=== PATIENT | female | born 1975 | race Caucasian/White ===

== ENCOUNTER 2017-02-06 05:50 | Inpatient (IN) | payer OTHER ==
[2017-02-06] MEDS ORDERED: ONDANSETRON 4 MG/2 ML VIAL IVP ONE (06:00)
[2017-02-06] MEDS ORDERED: fentaNYL 100 MCG/2 ML INJ IVP ONE ×2 (06:04→06:45)
[2017-02-06] MEDS ORDERED: ONDANSETRON 4 MG/2 ML VIAL ONE (06:04)
[2017-02-06] MEDS ORDERED: NS 1,000 ML IV ONE ×2 (06:04→08:37)
--- NOTE | 2017-02-06 06:14 | EDPHY ---
H & P Stated Complaint: Nausea, abdo pain X 6 hours Time Seen by Provider: 02/06/17 05:57 HPI/ROS: Chief complaint: Abdominal pain, nausea HPI: 41-year-old female with a past medical history of irritable bowel disease and endometriosis woke at midnight this morning with severe diffuse abdominal pain. Pain is rated as a 10/10. She has had some nausea associated with this but no vomiting. Initially felt like gas pains but continued to worsen. Also felt like her prior and will bowel pain but has never been this severe. Is she did have 2 loose stools. No blood or melena. She has a history of endometriosis status post hysterectomy. Up until this morning has been in her normal state of health. No fevers or chills. No chest pain or shortness of breath. She also reports that she normally has a very low blood pressure, typically in the 80 systolic. This is a very common for her. ROS: 10 point Review of Systems is negative except as noted in the HPI. Past medical history: Irritable bowel syndrome Endometriosis Migraine headaches Past surgical history: Hysterectomy Appendectomy Laparoscopy for endometriosis Allergies: Paroxetine Physical exam: Gen: Awake, Alert, No Distress HEENT: Nose: no rhinorrhea Eyes: PERRLA, EOMI Mouth: Moist mucosa Neck: Supple, no JVD Chest: nontender, lungs clear to auscultation Heart: S1, S2 normal, no murmur Abd: Soft, diffuse abdominal tenderness to palpation, worsening left lower quadrant. Decreased bowel sounds, diffuse voluntary guarding Back: no CVA tenderness, no midline tenderness Ext: no edema, non-tender Skin: no rash Neuro: CN II-XII intact, Sensation grossly intact, Strength 5/5 in bilateral upper and lower extremities - Personal History LMP (Females 10-55): Hysterectomy Current Tetanus/Diphtheria Vaccine: Yes Current Tetanus Diphtheria and Acellular Pertussis (TDAP): Yes - Medical/Surgical History Hx Asthma: No Hx Chronic Respiratory Disease: No Hx Diabetes: No Hx Cardiac Disease: No Hx Renal Disease: No Hx Cirrhosis: No Hx Alcoholism: No Hx HIV/AIDS: No Hx Splenectomy or Spleen Trauma: No Other PMH: endometriosis, IBS, panic attacks (mostly in college years ago) - Social History Smoking Status: Never smoked Constitutional: Initial Vital Signs Heart Rate 100 02/06/17 05:53 Respiratory Rate 18 02/06/17 05:53 Blood Pressure 85/74 L 02/06/17 05:53 O2 Sat (%) 100 02/06/17 05:53 O2 Delivery Mode Room Air Allergies/Adverse Reactions: paroxetine HCl [From Paxil] Allergy (Verified 02/06/17 05:53) Rash Home Medications: Medication Instructions Recorded Fexofenadine HCl [Orly Allergy] 60 mg PO DAILY 06/25/16 Herbals/Supplements -Info Only 1 ea PO DAILY 06/26/16 Docusate Sodium [Colace 100 MG (*)] 100 mg PO BID #0 cap 07/17/16 Hydrocodone/APAP 5/325 [[place] 1 - 2 tab PO Q4 PRN #30 tab 07/17/16 5/325 (*)] Ibuprofen [Ibuprofen Ib] 4 tab PO Q6 #0 tablet 07/17/16 Simethicone [Mylicon] 80 mg PO PCHS #0 tab.chew 07/17/16 Medical Decision Making ED Course/Re-evaluation: Patient with diffuse but primary left-sided abdominal pain to a 10/10. IV is been placed. Will give fluids. Will give antiemetics and analgesics. Blood work been sent. 0637 patient states initially pain went down to an 8/10. This was after the fentanyl. Patient's testing the penis or any creep up again is probably about a 9 getting higher. Will reduce fentanyl. Still awaiting blood test results. Given the patient's pain exam will order a CT scan of her head abdomen and pelvis for further evaluation. 0700 Pt still c/o pain. dilaudid 0.5 mg IV ordered. Pt signed out to Dr Zapata pending lab results and CT abdomen. - Data Points Laboratory Results: Laboratory Results 02/06/17 06:00 02/06/17 02/06/17 06:00 06:00 WBC 11.17 10^3/uL H 10^3/uL (3.80-9.50) RBC 4.90 10^6/uL 10^6/uL (4.18-5.33) Hgb 15.3 g/dL g/dL (12.6-16.3) Hct 44.5 % % (38.0-47.0) MCV 90.8 fL fL (81.5-99.8) MCH 31.2 pg pg (27.9-34.1) MCHC 34.4 g/dL g/dL (32.4-36.7) RDW 12.6 % % (11.5-15.2) Plt Count 350 10^3/uL 10^3/uL (150-400) MPV 11.3 fL fL (8.7-11.7) Neut % (Auto) 80.0 % H % (39.3-74.2) Lymph % (Auto) 14.5 % L % (15.0-45.0) [place] % (Auto) 4.1 % L % (4.5-13.0) Eos % (Auto) 0.3 % L % (0.6-7.6) Baso % (Auto) 0.6 % % (0.3-1.7) Nucleat RBC Rel Count 0.0 % % (0.0-0.2) Absolute Neuts (auto) 8.93 10^3/uL H 10^3/uL (1.70-6.50) Absolute Lymphs (auto) 1.62 10^3/uL 10^3/uL (1.00-3.00) Absolute Monos (auto) 0.46 10^3/uL 10^3/uL (0.30-0.80) Absolute Eos (auto) 0.03 10^3/uL 10^3/uL (0.03-0.40) Absolute Basos (auto) 0.07 10^3/uL 10^3/uL (0.02-0.10) Absolute Nucleated RBC 0.00 10^3/uL 10^3/uL (0-0.01) Immature Gran % 0.5 % % (0.0-1.1) Immature Gran # 0.06 10^3/uL 10^3/uL (0.00-0.10) Sodium Pending Potassium Pending Chloride Pending Carbon Dioxide Pending Anion Gap Pending BUN Pending Creatinine Pending Estimated GFR Pending Glucose Pending Calcium Pending Total Bilirubin Pending Conjugated Bilirubin Pending Unconjugated Bilirubin Pending AST Pending ALT Pending Alkaline Phosphatase Pending Total Protein Pending Albumin Pending Lipase Pending Medications Given: Discontinued Medications Fentanyl (Sublimaze) 50 mcg IVP EDNOW ONE Stop: 02/06/17 06:05 Last Admin: 02/06/17 06:12 Dose: 50 mcg Fentanyl (Sublimaze) 50 mcg IVP EDNOW ONE Stop: 02/06/17 06:46 Last Admin: 02/06/17 06:50 Dose: 50 mcg Sodium Chloride (Ns) 1,000 mls @ 0 mls/hr IV ONCE ONE PRN Reason: Wide Open Stop: 02/06/17 06:05 Last Admin: 02/06/17 06:11 Dose: 1,000 mls Ondansetron HCl (Zofran) 4 mg IVP EDNOW ONE Stop: 02/06/17 06:01 Last Admin: 02/06/17 06:00 Dose: 4 mg Departure - Departure Referrals: Denisa Brownlee MD [Primary Care Provider] - As per Instructions
[2017-02-06 06:49] LABS: % IMMATURE GRANULYOCYTES 0.5 % (0.0-1.1); ABSOLUTE IMMATURE GRANULOCYTES 0.06 10^3/uL (0.00-0.10); ADD DIFF? NO; ADD MORPH? NO; ADD SCAN? NO; ATYPICAL LYMPHOCYTE FLAG 0 (0-99); FRAGMENT RBC FLAG 0 (0-99); HEMATOCRIT 44.5 % (38.0-47.0); HEMOGLOBIN 15.3 g/dL (12.6-16.3); LEFT SHIFT FLG 0 (0-99); LIPEMIA HEMOLYSIS FLAG 90 (0-99); MEAN CELL HEMOGLOBIN 31.2 pg (27.9-34.1); MEAN CELL HEMOGLOBIN CONCENTR. 34.4 g/dL (32.4-36.7); MEAN CELL VOLUME 90.8 fL (81.5-99.8); MEAN PLATELET VOLUME 11.3 fL (8.7-11.7); PLATELET CLUMPS FLAG 20 (0-99); PLATELET COUNT 350 10^3/uL (150-400); RED CELL DISTRIBUTION WIDTH 12.6 % (11.5-15.2)
[2017-02-06] MEDS ORDERED: IOPAMIDOL (ISOVUE-300) 100 ML BTL IV ONE (06:51)
[2017-02-06] MEDS ORDERED: HYDROmorphONE/DILAUDID 1 MG/ML SYR ONE (07:01)
[2017-02-06] MEDS ORDERED: HYDROmorphONE/DILAUDID 1 MG/ML SYR IVP ONE (07:04)
[2017-02-06 07:24] LABS: ALANINE AMINOTRANSFERASE 36 IU/L (9-52); ALBUMIN 5.3 g/dL (3.5-5.0); ALKALINE PHOSPHATASE 81 IU/L (38-126); ANION GAP 15 mEq/L (8-16); ASPARTATE AMINOTRANSFERASE 37 IU/L (14-46); BILIRUBIN,TOTAL 0.7 mg/dL (0.1-1.4); BILIRUBIN-CONJUGATED 0.2 mg/dL (0.0-0.5); BILIRUBIN-UNCONJUGATED 0.5 mg/dL (0.0-1.1); CALCIUM 10.5 mg/dL (8.5-10.4); CARBON DIOXIDE 26 mEq/l (22-31); CHLORIDE 101 mEq/L (97-110); CREATININE 0.6 mg/dL (0.6-1.0); GLOMERULAR FILTRATION RATE > 60; GLUCOSE 118 mg/dL (70-100); POTASSIUM 3.6 mEq/L (3.5-5.2); SODIUM 142 mEq/L (134-144); TOTAL PROTEIN 8.7 g/dL (6.3-8.2)
[2017-02-06 07:56] LABS: COLOR AMBER; LEUKOCYTE ESTERASE,URINE NEGATIVE (NEGATIVE); NITRITE,URINE NEGATIVE (NEGATIVE)
[2017-02-06] MEDS ORDERED: ONDANSETRON 4 MG/2 ML VIAL IVP PRN (09:47)
[2017-02-06] MEDS ORDERED: METOCLOPRAMIDE 10 MG/2 ML VIAL IVP PRN (09:47)
[2017-02-06] MEDS ORDERED: CETACAINE SPRAY 20 GM TP ONE (09:54)
[2017-02-06] MEDS ORDERED: OXYMETAZOLINE 30 ML NASAL SPRAY ONE (09:55)
--- NOTE | 2017-02-06 10:21 | GHP ---
[f rep st] HISTORY AND PHYSICAL DATE OF ADMISSION: 02/06/2017 CHIEF COMPLAINT: Abdominal pain. HISTORY OF PRESENT ILLNESS: This is a 41-year-old female with a longstanding history of irritable b owel syndrome who presents to the emergency department with acute onset abdominal pain. She states that she was in her usual state of health last evening and began about midnight having fairly progre ssive excruciating abdominal pain. She stated that this was not out of the ordinary for her typical IBS type symptoms, but that the pain progressed and did not trinity with her typical treatment, inclu ding Gas-X and bowel movements. She presented to the emergency department early this morning compla ining of fairly diffuse abdominal pain with nausea, no vomiting, denying fevers and chills. On pres entation, her pain was rated at a 10/10. After receiving IV narcotics, the pain has abated somewhat but still persists. On my examination, the patient is resting on her left side and is somewhat tea rful. PAST MEDICAL HISTORY: Endometriosis, irritable bowel syndrome, migraines. PAST SURGICAL HISTORY: Open appendectomy, exploratory laparoscopy for endometriosis, and a laparosc opic hysterectomy with sparing of the ovaries done approximately 1 year ago. REVIEW OF SYSTEMS: A full 10-point review was performed and, unless explicitly stated above, is oth erwise negative. CURRENT MEDICATIONS: Include Orly, herbal supplements, ibuprofen, tramadol, hydrocodone, Colace, and various migraine headache medications. ALLERGIES: Paroxetine. PHYSICAL EXAM: VITAL SIGNS: Temperature 36.8, blood pressure 120/80. Her heart rate is 74 and she is 99% on room air. GENERAL: She is alert and oriented, in moderate distress. CV: She has a reg ular rate and rhythm without any murmurs. LUNGS: Clear to auscultation bilaterally. ABDOMEN: Dis tended. It is tender to deep palpation in the right lower quadrant without rebound tenderness or gu arding. EXTREMITIES: Warm and well perfused. LABS: Include CBC, which shows leukocytosis to 11,000. Chemistry is otherwise unremarkable. CT scan shows what appears to be a high-grade obstruction in the pelvis with proximal dilatation and a distal decompressed terminal ilium. ASSESSMENT AND PLAN: A 41-year-old female with high-grade bowel obstruction. I discussed the patie nt's CT scan and examination findings with her today. I did tell her that I was concerned about her examination and her CT and do feel that she warrants surgical exploration. She was a bit teary-eye d to this and stated that she wanted her who is currently out of town to be present for the operation. I did tell her that in the meantime we could place a nasogastric tube for decompression, continue IV hydration, and IV pain medicine, but that I do feel that she will fail conservative man agement and likely need an operation. She understands this. She understands my concern that she wi ll need an operating room likely within the next 24 hours. /[id number]/MODL
[2017-02-06] MEDS ORDERED: HYDROmorphONE/DILAUDID 1 MG/ML SYR IVP PRN (11:15)
[2017-02-06] MEDS: D5W 1/2 NS W/ 20 KCl/L 1,000 ML IV SCH ×2 (12:02→21:10)
[2017-02-06] MEDS: HYDROmorphONE/DILAUDID 1 MG/ML SYR IVP PRN ×4 (12:19→22:46)
[2017-02-06] MEDS: ACETAMINOPHEN 650 MG SUPP PR PRN (23:35)
[2017-02-06] MEDS: ACETAMINOPHEN 325 MG SUPP PR PRN (23:35)
[2017-02-07] MEDS: HYDROmorphONE/DILAUDID 1 MG/ML SYR IVP PRN ×8 (02:30→20:08)
[2017-02-07] MEDS: D5W 1/2 NS W/ 20 KCl/L 1,000 ML IV SCH ×2 (05:14→16:00)
[2017-02-07 05:50] LABS: % IMMATURE GRANULYOCYTES 0.2 % (0.0-1.1); ABSOLUTE IMMATURE GRANULOCYTES 0.02 10^3/uL (0.00-0.10); ADD DIFF? NO; ADD MORPH? NO; ADD SCAN? NO; ATYPICAL LYMPHOCYTE FLAG 0 (0-99); FRAGMENT RBC FLAG 0 (0-99); HEMATOCRIT 36.5 % (38.0-47.0); HEMOGLOBIN 12.3 g/dL (12.6-16.3); LEFT SHIFT FLG 0 (0-99); LIPEMIA HEMOLYSIS FLAG 80 (0-99); MEAN CELL HEMOGLOBIN 31.3 pg (27.9-34.1); MEAN CELL HEMOGLOBIN CONCENTR. 33.7 g/dL (32.4-36.7); MEAN CELL VOLUME 92.9 fL (81.5-99.8); MEAN PLATELET VOLUME 11.1 fL (8.7-11.7); PLATELET CLUMPS FLAG 10 (0-99); PLATELET COUNT 234 10^3/uL (150-400); RED BLOOD CELL COUNT 3.93 10^6/uL (4.18-5.33); RED CELL DISTRIBUTION WIDTH 12.8 % (11.5-15.2)
[2017-02-07 06:19] LABS: ANION GAP 10 mEq/L (8-16); CARBON DIOXIDE 25 mEq/l (22-31); CHLORIDE 107 mEq/L (97-110); CREATININE 0.5 mg/dL (0.6-1.0); GLOMERULAR FILTRATION RATE > 60; GLUCOSE 99 mg/dL (70-100); POTASSIUM 3.6 mEq/L (3.5-5.2); SODIUM 142 mEq/L (134-144)
[2017-02-07] MEDS: PHENOL 177 ML THROAT SPRAY PO PRN ×2 (13:34→15:49)
[2017-02-07] MEDS ORDERED: BACITRACIN OINTMENT 1 PACKET TP ONE (13:51)
[2017-02-07] MEDS: ACETAMINOPHEN 325 MG SUPP PR PRN (22:30)
[2017-02-07] MEDS: ACETAMINOPHEN 650 MG SUPP PR PRN (22:30)
--- NOTE | 2017-02-07 23:49 | SOAPPROG ---
SOAP Progress Note Assessment/Plan: Assessment: HD # 2 for SBO Hx open appendectomy, laparoscopy for endometriosis and hysterectomy Has experienced multiple episodes but this time the pain is more constant Continue NG Gastrograffin challenge 100 cc with 50 cc of water. Instilled through NG. If BM then will start clears. If contrast clears to colon then will dc NG and start clears. If nauseated then put back to suction. If contrast does not make it to colon within 8 hours, will take to OR Reviewed images with Anabela and her S: Sore throat. Still with intense pain that is only minimally better with NG O: Sitting in bed, appears comfortable CTAB no increased work of breathing Regular rate Hypoactive bowel sounds. Surgical incisions well healed. Soft but tender - worse in RLQ Plan: 02/07/17 23:46 Objective: Vital Signs Temp Pulse Resp BP Pulse Ox 37.1 C 88 16 112/69 95 02/07/17 20:00 02/07/17 20:00 02/07/17 20:00 02/07/17 20:00 02/07/17 20:00 Laboratory Results 02/07/17 04:58 02/07/17 04:58 02/06/17 02/07/17 02/08/17 05:59 05:59 05:59 Intake Total 4396 1207 Output Total 3200 2800 Balance 1196 -1593 ICD10 Worksheet Patient Problems: Problems Problem Status Onset Dysmenorrhea Acute Endometriosis determined by laparoscopy Acute Subserosal leiomyoma of uterus Acute
[2017-02-08] MEDS: D5W 1/2 NS W/ 20 KCl/L 1,000 ML IV SCH ×2 (00:34→10:40)
[2017-02-08] MEDS: HYDROmorphONE/DILAUDID 1 MG/ML SYR IVP PRN ×2 (09:21→20:59)
[2017-02-08] MEDS: ACETAMINOPHEN 325 MG SUPP PR PRN (09:39)
[2017-02-08] MEDS: ACETAMINOPHEN 650 MG SUPP PR PRN (09:39)
[2017-02-08] MEDS ORDERED: ACETAMINOPHEN 325 MG TAB PO PRN (09:59)
--- NOTE | 2017-02-08 10:41 | SOAPPROG ---
RAYRAY Progress Note Assessment/Plan: Assessment: HD # 3 for SBO Hx open appendectomy, laparoscopy for endometriosis and hysterectomy Abdominal pain started after appendectomy - about 12-15 years in duration Has experienced multiple episodes but this time the pain is more constant Contrast made it easily to colon. Still has pain. Spent time discussing functional abdominal pain I reviewed dr gutierres op note from hysterectomy and no mention of adhesions in RLQ. I think diagnostic laparoscopy would be low yield I can look into GI docs that treat chronic abdominal pain. She has tried numerous medications and nothing has helped She is also scheduled to see a neurologist for her migraines that are refractory to over 7 medications Reviewed imaging with Anabela Dumont NG Clear liquids S: Required pain medication overnight. Diarrhea overnight O: Sitting in bed, appears comfortable CTAB no increased work of breathing Regular rate Bowel sounds present. Surgical incisions well healed. Less distended today. Soft but tender - worse in RLQ Plan: 02/07/17 23:46 02/08/17 10:38 Objective: Vital Signs Temp Pulse Resp BP Pulse Ox 36.9 C 90 16 103/74 96 02/08/17 08:00 02/08/17 08:00 02/08/17 08:00 02/08/17 08:00 02/08/17 08:00 Laboratory Results 02/07/17 04:58 02/07/17 04:58 02/07/17 02/08/17 02/09/17 05:59 05:59 05:59 Intake Total 4178 4240 Output Total 2338 6668 Balance 1196 -882 ICD10 Worksheet Patient Problems: Problems Problem Status Onset Dysmenorrhea Acute Endometriosis determined by laparoscopy Acute Subserosal leiomyoma of uterus Acute
--- NOTE | 2017-02-09 10:53 | SOAPPROG ---
SOAP Progress Note Assessment/Plan: Assessment: HD #4 for SBO Tolerating clears. Will advance to regular diet Diarrhea slowing down. Passing flatus ? functional abdominal pain. consider GI consult Xray shows contrast moving through to colon without difficulty may d/c later today if tolerates regular diet Seen with Dr. Denis. Will make appt with Dr. Cantor. F/u Dr. Denis PRN S: Diarrhea slowing down. passing flatus. pain controlled. O: Laying in bed, appears comfortable CTAB no increased work of breathing Regular rate Bowel sounds present. soft, less distended. Tender RLQ, improved. Incision well- healed Objective: Vital Signs Temp Pulse Resp BP Pulse Ox 36.7 C 86 17 97/69 L 99 02/09/17 08:00 02/09/17 08:00 02/09/17 08:00 02/09/17 08:00 02/09/17 08:00 Laboratory Results 02/07/17 04:58 02/07/17 04:58 02/08/17 02/09/17 02/10/17 05:59 05:59 05:59 Intake Total 2363 240 1474 Output Total 6144 4248 300 Balance -712 -2710 1174 ICD10 Worksheet Patient Problems: Problems Problem Status Onset Dysmenorrhea Acute Endometriosis determined by laparoscopy Acute Subserosal leiomyoma of uterus Acute
[2017-02-09 15:18] VITALS: BP 98/71; PULSE 93; RESP 19; TEMP 98.1; O2SAT 95
== END 2017-02-09 17:30 | disposition home or self-care (01) | DRG 392 ==
LOC: OBSVTOIN 09:38 → F3E 11:21
PROVIDERS: ADMIT Surgery; ATTEND Surgery
PROC: 0D9670Z Drainage of Stomach with Drainage Device, Via Natural or Artificial Opening (ICD-10-PCS; principal; 2017-02-06)
DX: R10.84 Generalized abdominal pain (principal); K58.9 Irritable bowel syndrome, unspecified; Z90.710 Acquired absence of both cervix and uterus
CPT/HCPCS: J1170; J2405; J3010; Q9967

== ENCOUNTER 2017-06-26 07:27 | Observation (INO) | payer OTHER ==
--- NOTE | 2017-06-26 07:43 | EDPHY ---
H & P Time Seen by Provider: 06/26/17 07:47 HPI/ROS: CHIEF COMPLAINT: Left-sided abdominal pain HISTORY OF PRESENT ILLNESS: Patient admitted in January of this year with a small -bowel obstruction diagnosed on CT scan which was treated non operatively with NG tube suction. She woke up at 4:45 a.m. today which is her usual time to wake up with severe left-sided abdominal pain that does not feel like her previous bowel obstruction. She feels like it is menstrual cramps or ovarian but much much worse than typical. Symptoms severe in her left-sided and radiated around to her back. Not associated with urinary symptoms nausea or vomiting. Worse with movement. Symptoms severe. Did take oral Toradol but at the time symptoms began. REVIEW OF SYSTEMS: Eye: no change in vision ENT: no sore throat Cardiac: no chest pain or syncope Pulmonary: no cough or SOB Abdomen: HPI Musculoskeletal: HPI Skin: no rash Neuro: no headache Constitutional: no fever : no urinary symptoms, no dysuria or hematuria A comprehensive 10 point review of systems is otherwise negative aside from elements mentioned in the history of present illness. PAST MEDICAL HISTORY: Admission 01/27/2017 for bowel obstruction. History of endometriosis and irritable bowel. Open appendectomy, laparoscopic hysterectomy. Migraine headaches. Dr. Toth admission H&P reviewed personally Social history: Nonsmoker General Appearance: Alert and conversant, cooperative. Moderately uncomfortable , pain is worse obviously with movement. Eyes: No scleral icterus. ENT, Mouth: Normal mucous membranes. Respiratory: Normal respiratory effort, breath sounds equal, lungs are clear to auscultation. Cardiovascular: Regular rate and rhythm. Gastrointestinal: Bilateral lower quadrant abdominal tenderness without guarding. Neurological: Alert and oriented x3. Normally conversant. Face symmetric, normal movement and sensation in all extremities. Skin: Warm and dry, no rashes. Musculoskeletal: No peripheral edema and no joint swelling. Psychiatric: Not agitated. Emergency Department course/MDM: Dilaudid 0.5 IV and Zofran 4 mg IV. Start with pelvic ultrasound and labs. Had a hysterectomy, not . 923: Normal pelvic ultrasound, normal ovaries per Eligio Gandara; results discussed with the patient, CT consented. 1045: Negative abdominal pelvis CT per Helgans. Specifically no obstruction or free air. 1115: Results discussed, still has 7/10 pain. Additional 0.5 mg IV Dilaudid. 15 mg IV Toradol. Admit with surgical consultation. Smoking Status: Never smoked Constitutional: Initial Vital Signs Temperature (C) 36.6 C 06/26/17 07:42 Heart Rate 79 06/26/17 07:42 Respiratory Rate 17 06/26/17 07:42 Blood Pressure 91/61 L 06/26/17 07:42 O2 Sat (%) 100 06/26/17 07:42 O2 Delivery Mode Room Air Allergies/Adverse Reactions: paroxetine HCl [From Paxil] Allergy (Verified 02/06/17 05:53) Rash Home Medications: Medication Instructions Recorded Herbals/Supplements -Info Only 1 ea PO DAILY 06/26/16 Acetaminophen [Tylenol ES 500 mg 1,000 mg PO BID PRN 02/06/17 (*)] Polyethylene Glycol 3350 [Miralax 17 gm PO DAILY 02/06/17 17 gm (*)] Vitamin B Complex [B Complex] 1 each PO DAILY 02/06/17 Cholecalciferol Vit D3 [Vitamin D3 2,000 units PO DAILY 06/26/17 (*)] Gabapentin [Neurontin 100 MG (*)] 100 mg PO HS 06/26/17 Ketorolac Tromethamine [Toradol] 10 - 20 mg PO Q30D 06/26/17 Lactobacil 2-S.thermo-Bifido 1 2 each PO HS 06/26/17 [VSL#3 DS PACKET] Medical Decision Making - Diagnostics Imaging Results: Imaging Impressions Pelvic/Renal Ultrasound 06/26/17 07:55 Impression: 1. Removal of uterus. 2. Normal ovaries. I telephoned results to Dr. Steven Briseno at [address] 06/26/17 09:29 Impression: 1. No evidence of bowel obstruction or localized intraabdominal inflammatory process. 2. Mild left-sided constipation. Findings discussed with Emergency Department physician, Steven Briseno, on June 26, 2017 at 10:49 a.m. Differential Diagnosis: Differential considered including but not limited to renal colic, endometriosis , bowel obstruction, ovarian torsion, ovarian cyst Consult/Admit Bed Type: [facility] [place] 1125, [facility] 1142 - Data Points Laboratory Results: Laboratory Results 06/26/17 08:05 06/26/17 08:05 06/26/17 06/26/17 06/26/17 08:50 08:05 08:05 WBC 6.16 10^3/uL 10^3/uL (3.80-9.50) RBC 4.73 10^6/uL 10^6/uL (4.18-5.33) Hgb 14.6 g/dL g/dL (12.6-16.3) Hct 42.3 % % (38.0-47.0) MCV 89.4 fL fL (81.5-99.8) MCH 30.9 pg pg (27.9-34.1) MCHC 34.5 g/dL g/dL (32.4-36.7) RDW 12.4 % % (11.5-15.2) Plt Count 226 10^3/uL 10^3/uL (150-400) MPV 11.4 fL fL (8.7-11.7) Neut % (Auto) 67.0 % % (39.3-74.2) Lymph % (Auto) 26.6 % % (15.0-45.0) [place] % (Auto) 5.2 % % (4.5-13.0) Eos % (Auto) 0.2 % L % (0.6-7.6) Baso % (Auto) 0.8 % % (0.3-1.7) Nucleat RBC Rel Count 0.0 % % (0.0-0.2) Absolute Neuts (auto) 4.13 10^3/uL 10^3/uL (1.70-6.50) Absolute Lymphs (auto) 1.64 10^3/uL 10^3/uL (1.00-3.00) Absolute Monos (auto) 0.32 10^3/uL 10^3/uL (0.30-0.80) Absolute Eos (auto) 0.01 10^3/uL L 10^3/uL (0.03-0.40) Absolute Basos (auto) 0.05 10^3/uL 10^3/uL (0.02-0.10) Absolute Nucleated RBC 0.00 10^3/uL 10^3/uL (0-0.01) Immature Gran % 0.2 % % (0.0-1.1) Immature Gran # 0.01 10^3/uL 10^3/uL (0.00-0.10) Sodium 138 mEq/L mEq/L (134-144) Potassium 3.6 mEq/L mEq/L (3.5-5.2) Chloride 102 mEq/L mEq/L (97-110) Carbon Dioxide 23 mEq/l mEq/l (22-31) Anion Gap 13 mEq/L mEq/L (8-16) BUN 10 mg/dL mg/dL (7-23) Creatinine 0.6 mg/dL mg/dL (0.6-1.0) Estimated GFR > 60 Glucose 163 mg/dL H mg/dL (70-100) Calcium 9.6 mg/dL mg/dL (8.5-10.4) Urine Color YELLOW Urine Appearance HAZY Urine pH 7.0 (5.0-7.5) Ur Specific [place] 1.004 (1.002-1.030) Urine Protein NEGATIVE (NEGATIVE) Urine Ketones NEGATIVE (NEGATIVE) Urine Blood NEGATIVE (NEGATIVE) Urine Nitrate NEGATIVE (NEGATIVE) Urine Bilirubin NEGATIVE (NEGATIVE) Urine Urobilinogen NEGATIVE EU EU (0.2-1.0) Ur Leukocyte Esterase NEGATIVE (NEGATIVE) Urine Glucose NEGATIVE (NEGATIVE) Medications Given: Discontinued Medications Hydromorphone HCl (Dilaudid) 0.5 mg IVP EDNOW ONE Stop: 06/26/17 07:55 Last Admin: 06/26/17 08:01 Dose: 0.5 mg Hydromorphone HCl (Dilaudid) 0.5 mg IVP EDNOW ONE Stop: 06/26/17 09:01 Last Admin: 06/26/17 09:00 Dose: 0.5 mg Hydromorphone HCl (Dilaudid) 0.5 mg IVP EDNOW ONE Stop: 06/26/17 11:04 Last Admin: 06/26/17 11:07 Dose: 0.5 mg Ketorolac Tromethamine (Toradol) 15 mg IVP EDNOW ONE Stop: 06/26/17 11:21 Last Admin: 06/26/17 11:41 Dose: 15 mg Ondansetron HCl (Zofran) 4 mg IVP EDNOW ONE Stop: 06/26/17 07:55 Last Admin: 06/26/17 08:03 Dose: 4 mg Departure - Departure Disposition: [facility] Acute Clinical Impression: Abdominal pain Qualifiers: Abdominal location: left lower quadrant Qualified Code(s): R10.32 - Left lower quadrant pain Condition: Good
[2017-06-26] MEDS ORDERED: ONDANSETRON 4 MG/2 ML VIAL IVP ONE (07:54)
[2017-06-26] MEDS ORDERED: HYDROmorphONE/DILAUDID 1 MG/ML SYR IVP ONE ×3 (07:54→11:03)
[2017-06-26 08:13] LABS: % IMMATURE GRANULYOCYTES 0.2 % (0.0-1.1); ABSOLUTE IMMATURE GRANULOCYTES 0.01 10^3/uL (0.00-0.10); ADD DIFF? NO; ADD MORPH? NO; ADD SCAN? NO; ATYPICAL LYMPHOCYTE FLAG 10 (0-99); FRAGMENT RBC FLAG 0 (0-99); HEMATOCRIT 42.3 % (38.0-47.0); HEMOGLOBIN 14.6 g/dL (12.6-16.3); LEFT SHIFT FLG 0 (0-99); LIPEMIA HEMOLYSIS FLAG 90 (0-99); MEAN CELL HEMOGLOBIN 30.9 pg (27.9-34.1); MEAN CELL HEMOGLOBIN CONCENTR. 34.5 g/dL (32.4-36.7); MEAN CELL VOLUME 89.4 fL (81.5-99.8); MEAN PLATELET VOLUME 11.4 fL (8.7-11.7); PLATELET CLUMPS FLAG 0 (0-99); PLATELET COUNT 226 10^3/uL (150-400); RED BLOOD CELL COUNT 4.73 10^6/uL (4.18-5.33); RED CELL DISTRIBUTION WIDTH 12.4 % (11.5-15.2)
[2017-06-26 08:34] LABS: ANION GAP 13 mEq/L (8-16); CALCIUM 9.6 mg/dL (8.5-10.4); CARBON DIOXIDE 23 mEq/l (22-31); CHLORIDE 102 mEq/L (97-110); CREATININE 0.6 mg/dL (0.6-1.0); GLOMERULAR FILTRATION RATE > 60; GLUCOSE 163 mg/dL (70-100); POTASSIUM 3.6 mEq/L (3.5-5.2); SODIUM 138 mEq/L (134-144)
[2017-06-26] MEDS ORDERED: HYDROmorphONE/DILAUDID 1 MG/ML SYR ONE (08:57)
[2017-06-26 09:09] LABS: COLOR YELLOW; LEUKOCYTE ESTERASE,URINE NEGATIVE (NEGATIVE); NITRITE,URINE NEGATIVE (NEGATIVE)
[2017-06-26] MEDS ORDERED: IOPAMIDOL (ISOVUE-300) 100 ML BTL ONE (09:48)
[2017-06-26 11:14] VITALS: RESP 16
[2017-06-26] MEDS ORDERED: KETOROLAC 30 MG/1 ML SDV IVP ONE (11:20)
[2017-06-26] MEDS ORDERED: HYDROmorphONE/DILAUDID 1 MG/ML SYR IVP PRN (12:37)
[2017-06-26] MEDS: NS 1,000 ML IV SCH ×3 (12:47→20:58)
[2017-06-26] MEDS ORDERED: ACETAMINOPHEN 325 MG TAB PO PRN (13:43)
[2017-06-26] MEDS ORDERED: ONDANSETRON DISINTEGRATING 4 MG TAB PO PRN (13:43)
[2017-06-26] MEDS ORDERED: IBUPROFEN 200 MG TAB PO PRN ×2 (13:43→19:13)
[2017-06-26] MEDS ORDERED: ONDANSETRON 4 MG/2 ML VIAL IVP PRN (13:43)
--- NOTE | 2017-06-26 14:19 | GHP ---
[f rep st] HISTORY AND PHYSICAL DATE OF ADMISSION: 06/26/2017 CHIEF COMPLAINT: Left sided abdominal pain. HISTORY OF PRESENT ILLNESS: The patient is a very nice, 42-year-old female, who has a history of endometriosis and irritable bowel syndrome who presented in the emergency room with left-sided abdominal pain. She was recently here in January of 2017 for a bowel obstruction that was treated conservatively with NG, IV fluids and pain medications. Today her symptoms are quite different than when she had the bowel obstruction. They started at 4 this morning. She describes feeling full and constipated. The prior day she did not have her regular bowel movements and then this morning at 5 a.m. she had a regular bowel movement. She also notes that she gets similar pain when she is ovulating, but the pain persisted even after she took her Toradol, which usually relieves these symptoms. She said the pain was so intense that she needed further treatment than what she had available at home. She was given Toradol and IV Dilaudid in the emergency room. She is feeling markedly better. She denies any fever. She has no chills. Overall she has been feeling quite well. She describes getting headaches daily but she did not have one today. She also has a history of small intestinal overgrowth. During my interview, she is feeling markedly better. PAST MEDICAL HISTORY: 1. Endometriosis. 2. Irritable bowel syndrome. Sees Dr. Cantor at [facility]. 3. Migraines since teenager. She is getting further evaluation at [facility]. PAST SURGICAL HISTORY: 1. History of bilateral salpingectomy on 07/16/2016. 2. Removal of uterine polyp and laparoscopic exploratory surgery to evaluate for endometriosis. 3. Appendectomy. FAMILY HISTORY: Her mom is prediabetic. She has bowel issues and mental health issues. Her father is healthy. SOCIAL HISTORY: She has been for 3 years. She has no children. She does not smoke. She does not drink alcohol. ALLERGIES: Paroxetine. HOME MEDICATIONS: Toradol 10-20 mg p.o. q.30 days, lactobacillus 2 each at bedtime, Neurontin 100 mg p.o. at bedtime, vitamin D3 2000 units daily, vitamin B complex 1 daily, MiraLAX 17 g daily, herbal supplements 1 daily and Tylenol Extra Strength 1000 mg p.o. twice daily p.r.n. REVIEW OF SYSTEMS: A 10-point review of system was performed and was negative other than pertinent positives in HPI and past medical history. PHYSICAL EXAMINATION: GENERAL: The patient is a very healthy-looking 42-year- old female. VITAL SIGNS: Blood pressure is 95/67, heart rate is 75, respiratory rate 16, O2 sats on room air 96, temperature 36.6 Celsius. HEENT: Eyes: Pupils are equal and reactive. EOMs are intact. ENT: Normal ears. Hearing intact. NECK: Trachea is midline. CARDIOVASCULAR: She is in a regular rate and rhythm. No murmurs, rubs, or gallops noted. CHEST/LUNGS: Normal respiratory effort. Clear without wheezing, rales or rhonchi. ABDOMEN: Soft. It is tender in the left upper quadrant. She describes that the pain radiates to the left lower quadrant. She does not have any guarding. SKIN: No rashes or ulcer. Warm, dry and intact. MUSCULOSKELETAL: Normal gait. Equal upper and lower extremity strength. PSYCHIATRIC: She is alert and oriented. Normal mood and affect. Normal judgment, insight, and normal memory. LABORATORY DATA: A CBC was performed with a white blood cell count 6.16, hemoglobin 14.6, hematocrit 42.3, platelet count of 226. Chemistry: Sodium is 138, potassium 3.6, chloride of 102, creatinine 0.6, glucose is 163. Urinalysis is noted to be negative. A CT of the abdomen was performed, which showed no evidence of bowel obstruction or localized intraabdominal inflammatory process. She has some mild left-sided constipation. Pelvic renal ultrasound was performed which showed normal ovaries, removal of the uterus. ASSESSMENT/PLAN: 1. Left lower quadrant pain. This could be secondary to her ovulation. It is occurring the exact same day that it usually does. Also, the CT scan notes some mild constipation. For now, I do not think she requires a surgical consult. She is already markedly better. She is asking for a regular diet; this has been ordered. Will treat with anti-inflammatories and pain medications. 2. Hyperglycemia; this is likely stress induced. 3. Migraines. She is getting further workup at [facility]. The plan is for her to get an MRI of her neck. For now, we will continue her gabapentin. 4. Length of stay. She will require less than a 2 midnight stay which will make her observation status. 5. Deep venous thrombosis prophylaxis: Low risk. /[id number]/MODL MTDD
[2017-06-26] MEDS: HYDROmorphONE/DILAUDID 1 MG/ML SYR IVP PRN ×4 (15:38→23:44)
[2017-06-26] MEDS ORDERED: HYDROmorphONE/DILAUDID 2 MG TAB PO PRN (19:12)
[2017-06-26] MEDS ORDERED: IBUPROFEN 800 MG TAB PO PRN (19:22)
[2017-06-26] MEDS: KETOROLAC 15 MG/1 ML SDV IVP PRN (20:53)
[2017-06-26] MEDS ORDERED: GABAPENTIN 100 MG CAP PO SCH (21:00)
[2017-06-27 04:28] VITALS: TEMP 98.2
[2017-06-27] MEDS: KETOROLAC 15 MG/1 ML SDV IVP PRN (04:31)
[2017-06-27] MEDS: NS 1,000 ML IV SCH (04:31)
[2017-06-27 08:42] VITALS: BP 94/63; PULSE 87; O2SAT 97
[2017-06-27] MEDS ORDERED: POLYETHYLENE GLYCOL 3350 17 GM PKT PO SCH (09:00)
--- NOTE | 2017-06-27 09:51 | PDDCSUM ---
Discharge Summary Discharge Summary: DISCHARGE DIAGNOSES: -acute recurrent episode of pelvic pain -chronic history of pain at the time of ovulation status post extensive workup and avoid of attempted treatment PROCEDURES: CT scan of abdomen Pelvic ultrasound HOSPITAL COURSE SUMMARY: This patient who has monthly remarkable pelvic pain at the time of ovulation had an episode of her usual pain but much more severe than usual. This is something that is been going on for years and she has had extensive workup including imaging 2 laparoscopies and a variety of attempts at treatment. So far the only thing that helps is taking Toradol at the very onset of her symptoms. She did take Toradol at the onset of symptoms from this episode but for unclear reasons at the not work as well as usual. She came into the ER and had intractable pain there so was placed on observation here in the hospital. By this time her pain has completely resolved which is typical for her episodes. There is no fever or other evidence of infection and no evidence of bowel obstruction. At this time she is stable for discharge to home and she his can continue her usual plans for management of her symptoms. However in talking to her she also has bed irritable bowel syndrome symptoms and is treating those. As I talked to her in detail she mentions that she does have a change in her bowel symptoms and function at the time of her ovulation. As she finds Toradol helpful this syndrome clearly involves inflammation. If she is having inflammation from ovulation it may be that the inflammation is aggravating irritable bowel symptoms. I recommended that she talk to her consulting software engineer about which treatments she might try at the time of her ovulation in the way of managing bowel symptoms to see if this is helpful. PENDING TEST RESULTS: None MEDICATION CHANGES: None FOLLOW-UP PLAN: With her consulting software engineer as above Greater than 35 minutes bedside and care coordination time today
== END 2017-06-27 10:31 | disposition home or self-care (01) ==
LOC: F1N 12:03
PROVIDERS: ADMIT Internal Medicine; ATTEND Internal Medicine
DX: R10.2 Pelvic and perineal pain (principal); R73.9 Hyperglycemia, unspecified; G43.909 Migraine, unspecified, not intractable, without status migrainosus
CPT/HCPCS: 74177; 76856; 96374; 96375; 96376; 99285; G0378; J1170; J1885; J2405; Q9967

== ENCOUNTER → 2017-07-04 | Outpatient (CLI) | payer OTHER | LOC: FIMAGING 14:16 | PROVIDERS: ATTEND Physical Medicine & Rehabilitation | DX: M50.322 Other cervical disc degeneration at C5-C6 level (principal); M50.323 Other cervical disc degeneration at C6-C7 level ==

== ENCOUNTER → 2017-07-18 | Outpatient (CLI) | payer OTHER ==
[~2017-07-18] MED LIST: GADOBUTROL 10 ML VIAL IVP ONE
== END ==
LOC: FIMAGING 16:07
PROVIDERS: ATTEND Psychiatry & Neurology Neurology
DX: G37.9 Demyelinating disease of central nervous system, unspecified (principal); G43.909 Migraine, unspecified, not intractable, without status migrainosus
CPT/HCPCS: A9585

== ENCOUNTER → 2017-07-31 | Outpatient (CLI) | payer OTHER | LOC: FIMAGING 07:07 | PROVIDERS: ATTEND Psychiatry & Neurology Neurology | DX: R93.0 Abnormal findings on diagnostic imaging of skull and head, not elsewhere classified (principal) | CPT/HCPCS: A9585 ==

== ENCOUNTER → 2017-08-21 | Outpatient (CLI) | payer OTHER ==
[2017-08-21 12:57] LABS: PROTEIN, CSF 55 mg/dL (12-60)
[2017-08-21 13:00] LABS: CSF COLOR COLORLESS (COLORLESS)
[2017-08-21 13:01] LABS: CSF APPEARANCE CLEAR (CLEAR); CSF SUPERNATANT COLORLESS (COLORLESS); WBC, CSF 0 /mm3 (0-5)
[2017-08-24 12:10] LABS: ALBUMIN CSF 28.4 mg/dL (<=27.0); ALBUMIN SERUM 5390 mg/dL; CSF IGG INDEX 0.48 (<=0.85); IGG CSF 4.1 mg/dL (<=8.1); IGG SERUM 1590 mg/dL (767 - 1590); IGG/ALBUMIN CSF 0.14 (<=0.21); IGG/ALBUMIN SERUM 0.29 (<=0.40)
[2017-08-24 13:36] LABS: VDRL CSF Negative (Negative)
[2017-08-28 10:11] LABS: MISCELLANEOUS TEST See Comments
== END ==
LOC: FIMAGING 08:43
PROVIDERS: ATTEND Psychiatry & Neurology Neurology
PROC: 009U3ZX Drainage of Spinal Canal, Percutaneous Approach, Diagnostic (ICD-10-PCS; principal; 2017-08-21)
DX: G37.3 Acute transverse myelitis in demyelinating disease of central nervous system (principal); R51 Headache
CPT/HCPCS: 82784-90; 86592-90

== ENCOUNTER 2017-11-28 23:48 | Emergency (ER) | payer SELFPAY ==
[2017-11-28 23:54] VITALS: TEMP 97.5
[2017-11-28] MEDS ORDERED: NS 1,000 ML IV ONE ×2 (23:58)
[2017-11-28] MEDS ORDERED: ONDANSETRON 4 MG/2 ML VIAL IVP ONE (23:58)
--- NOTE | 2017-11-28 23:58 | EDPHY ---
H & P Stated Complaint: mid Abdominal Pain, radiates to back Time Seen by Provider: 11/28/17 23:58 HPI/ROS: HPI: This is a 42-year-old female who presents with Chief Complaint: mid Abdominal Pain, radiates to back Location: GI Quality: Pain Duration: 6 hr Signs and Symptoms: no fever, + nausea, + vomiting, no hematemesis, no blood in stool, + abdominal bloating, no diarrhea, no back pain, no urinary symptoms, no vaginal bleeding/discharge, no indigestion, no chest pain, no shortness of breath Timing: Sudden, constant Severity: Moderate to severe Context: Patient has a history of small-bowel obstruction in January of 2017, along with chronic constipation presents with sudden onset of abdominal pain, periumbilical area, radiating into her back, that started at 6:00 p.m. that is described as constant, severe. She reports that she took 2 Bentyl, performed an enema and had 2 bowel movements with no relief of pain and bloating. She reports that she has significant abdominal bloating. She reports that this feels similar to when she had an obstruction back in January. She is requesting for abdominal x-ray to be ordered 1st prior to obtaining and CT of abdomen and pelvis scan as she has had so many in the past. Denies any fever/urinary symptoms/vaginal bleeding/vaginal discharge. Status post hysterectomy and appendectomy. History of pelvic adhesion. She has had nausea and vomited once prior to arrival. Modifying Factors: See above Comment: ROS: see HPI Constitutional: No fever, no chills, no weight loss Eyes: No blurred vision Respiratory: No shortness of breath, no cough Cardiovascular: No chest pain, no palpitations Gastrointestinal: + nausea, + vomiting, no diarrhea, no hematemesis, no blood in stool Genitourinary: No dysuria, no blood in urine Extremities: No myalgias, no edema Neurologic: No weakness, no numbness Skin: No rashes, no petechiae Hematologic: No bruising, no bleeding MEDICAL/SURGICAL/SOCIAL HISTORY: Medical /Surgical history: endometriosis, IBS, panic attacks (mostly in college years ago), hysterectomy, appedix removed, migraines Social history: . CONSTITUTIONAL: Polite and cooperative, ft thin and petite adult white female, awake and alert, no obvious distress HEENT: Atraumatic and normocephalic, PERRL, EOMI. Tympanic membranes clear. Oropharynx clear, no exudate and moist pink mucosa. Airway patent. No lymphadenopathy. No meningismus. Cardiovascular: Normal S1/S2, regular rate, regular rhythm, without murmur rub or gallop. PULMONARY/CHEST: Symmetrical and nontender. Clear to auscultation bilaterally. Good air movement. No accessory muscle usage. ABDOMEN: Soft, nondistended, periumbilical moderate tenderness, no rebound, no guarding, no peritoneal signs, no masses or organomegaly. No CVAT. Hypoactive bowel sounds heard x4 quadrants. EXTREMITIES: 2/2 pulses, strength 5/5, no deformities, no clubbing, no cyanosis or edema. NEUROLOGICAL: no focal neuro deficits. GCS 15. SKIN: Warm and dry, no erythema. no rash. Good capillary refill. Source: Patient Exam Limitations: No limitations - Personal History LMP (Females 10-55): Hysterectomy Current Tetanus Diphtheria and Acellular Pertussis (TDAP): Yes - Medical/Surgical History Hx Asthma: No Hx Chronic Respiratory Disease: No Hx Diabetes: No Hx Cardiac Disease: No Hx Renal Disease: No Hx Cirrhosis: No Hx Alcoholism: No Hx HIV/AIDS: No Hx Splenectomy or Spleen Trauma: No Other PMH: endometriosis, IBS, panic attacks (mostly in college years ago), hysterectomy, appedix removed, migraines - Social History Smoking Status: Never smoked Constitutional: Initial Vital Signs Temperature (C) 36.4 C 11/28/17 23:50 Heart Rate 90 11/28/17 23:50 Respiratory Rate 22 H 11/28/17 23:50 Blood Pressure 96/68 L 11/28/17 23:50 O2 Sat (%) 100 11/28/17 23:50 O2 Delivery Mode Nasal Cannula O2 (L/minute) 2 Allergies/Adverse Reactions: paroxetine HCl [From Paxil] Allergy (Intermediate, Verified 11/28/17 23:49) Rash Home Medications: Medication Instructions Recorded Herbals/Supplements -Info Only 1 ea PO DAILY 06/26/16 Acetaminophen [Tylenol ES 500 mg 1,000 mg PO BID PRN 02/06/17 (*)] Polyethylene Glycol 3350 [Miralax 17 gm PO DAILY 02/06/17 17 gm (*)] Gabapentin [Neurontin 100 MG (*)] 300 mg PO TID 06/26/17 Lactobacil 2-S.thermo-Bifido 1 2 each PO HS 06/26/17 [VSL#3 DS PACKET] Xulane Patch TD CONT 08/17/17 Medical Decision Making ED Course/Re-evaluation: Labs, urinalysis, IV fluids, IV medications, EKG ordered Given 2 L normal saline, IV morphine and IV Zofran 0058: Labs reviewed and elevated white count 13K with lactic acid 2.6. Received adequate 30 mL/kg fluid resuscitation Abdominal x-ray my read shows no significant stool burden, gas pattern At this point I recommend further imaging with CT abdomen and pelvis scan to evaluate for obstruction. Patient does not think that she will be able to drink oral contrast. Patient requests that we wait 1 hr (until 0200) to see if symptoms resolve as she really does not want have a CT scan. She reports that the IV morphine is helping her abdominal pain ease off at this point. 0300: Reassessed patient who reports her abdominal pain is down to a 3/10. Repeat abdominal exam shows bowel sounds x4 quadrants. Soft and nontender. Doubt surgical intervention at this time. She is self-pay and does not want to have a CT scan at this time Percocet prepack given to take home. Repeat lactic acid was 1.8. Patient understands the risk of a bowel obstruction and wishes to be discharged home with outpatient follow-up. This patient was seen under the supervision of my secondary supervising physician. I evaluated care for this patient independently. Discussed this patient with Dr. Mann who did not see the patient. Patient's presentation, labs/imaging, treatment and plan of care were discussed with secondary supervising physician. Differential Diagnosis: Abdominal pain including but not limited to appendicitis, cholecystitis, gastritis and urinary tract infection. - Data Points Laboratory Results: Laboratory Results 11/29/17 00:33 11/29/17 00:33 11/29/17 11/29/17 11/29/17 02:33 02:15 00:33 WBC RBC Hgb Hct MCV MCH MCHC RDW Plt Count MPV Neut % (Auto) Lymph % (Auto) [place] % (Auto) Eos % (Auto) Baso % (Auto) Nucleat RBC Rel Count Absolute Neuts (auto) Absolute Lymphs (auto) Absolute Monos (auto) Absolute Eos (auto) Absolute Basos (auto) Absolute Nucleated RBC Immature Gran % Immature Gran # VBG Lactic Acid 1.8 mmol/L D mmol/L (0.7-2.1) Sodium Potassium Chloride Carbon Dioxide Anion Gap BUN Creatinine Estimated GFR Glucose Calcium Total Bilirubin Conjugated Bilirubin Unconjugated Bilirubin AST ALT Alkaline Phosphatase Total Protein Albumin Lipase Beta HCG, Qual NEGATIVE Urine Color PALE YELLOW Urine Appearance CLEAR Urine pH 7.0 (5.0-7.5) Ur Specific [place] 1.002 (1.002-1.030) Urine Protein NEGATIVE (NEGATIVE) Urine Ketones NEGATIVE (NEGATIVE) Urine Blood NEGATIVE (NEGATIVE) Urine Nitrate NEGATIVE (NEGATIVE) Urine Bilirubin NEGATIVE (NEGATIVE) Urine Urobilinogen NEGATIVE EU EU (0.2-1.0) Ur Leukocyte Esterase NEGATIVE (NEGATIVE) Urine Glucose NEGATIVE (NEGATIVE) 11/29/17 11/29/17 11/29/17 00:33 00:33 00:33 WBC 13.38 10^3/uL H 10^3/uL (3.80-9.50) RBC 4.93 10^6/uL 10^6/uL (4.18-5.33) Hgb 15.3 g/dL g/dL (12.6-16.3) Hct 43.5 % % (38.0-47.0) MCV 88.2 fL fL (81.5-99.8) MCH 31.0 pg pg (27.9-34.1) MCHC 35.2 g/dL g/dL (32.4-36.7) RDW 13.0 % % (11.5-15.2) Plt Count 316 10^3/uL 10^3/uL (150-400) MPV 10.4 fL fL (8.7-11.7) Neut % (Auto) 85.2 % H % (39.3-74.2) Lymph % (Auto) 10.2 % L % (15.0-45.0) [place] % (Auto) 3.6 % L % (4.5-13.0) Eos % (Auto) 0.1 % L % (0.6-7.6) Baso % (Auto) 0.5 % % (0.3-1.7) Nucleat RBC Rel Count 0.0 % % (0.0-0.2) Absolute Neuts (auto) 11.39 10^3/uL H 10^3/uL (1.70-6.50) Absolute Lymphs (auto) 1.36 10^3/uL 10^3/uL (1.00-3.00) Absolute Monos (auto) 0.48 10^3/uL 10^3/uL (0.30-0.80) Absolute Eos (auto) 0.02 10^3/uL L 10^3/uL (0.03-0.40) Absolute Basos (auto) 0.07 10^3/uL 10^3/uL (0.02-0.10) Absolute Nucleated RBC 0.00 10^3/uL 10^3/uL (0-0.01) Immature Gran % 0.4 % % (0.0-1.1) Immature Gran # 0.06 10^3/uL 10^3/uL (0.00-0.10) VBG Lactic Acid 2.5 mmol/L H mmol/L (0.7-2.1) Sodium 142 mEq/L mEq/L (134-144) Potassium 3.9 mEq/L mEq/L (3.5-5.2) Chloride 103 mEq/L mEq/L (97-110) Carbon Dioxide 26 mEq/l mEq/l (22-31) Anion Gap 13 mEq/L mEq/L (8-16) BUN 4 mg/dL L mg/dL (7-23) Creatinine 0.6 mg/dL mg/dL (0.6-1.0) Estimated GFR > 60 Glucose 144 mg/dL H mg/dL (70-100) Calcium 10.3 mg/dL mg/dL (8.5-10.4) Total Bilirubin 0.7 mg/dL mg/dL (0.1-1.4) Conjugated Bilirubin 0.2 mg/dL mg/dL (0.0-0.5) Unconjugated Bilirubin 0.5 mg/dL mg/dL (0.0-1.1) AST 72 IU/L H IU/L (14-46) ALT 63 IU/L H IU/L (9-52) Alkaline Phosphatase 89 IU/L IU/L (38-126) Total Protein 7.1 g/dL g/dL (6.3-8.2) Albumin 4.3 g/dL g/dL (3.5-5.0) Lipase 34 IU/L IU/L (23-300) Beta HCG, Qual Urine Color Urine Appearance Urine pH Ur Specific [place] Urine Protein Urine Ketones Urine Blood Urine Nitrate Urine Bilirubin Urine Urobilinogen Ur Leukocyte Esterase Urine Glucose Medications Given: Discontinued Medications Sodium Chloride (Ns) 1,000 mls @ 0 mls/hr IV EDNOW ONE; Wide Open PRN Reason: Protocol Stop: 11/28/17 23:59 Last Admin: 11/29/17 00:53 Dose: 1,000 mls Sodium Chloride (Ns) 1,000 mls @ 0 mls/hr IV EDNOW ONE; Wide Open PRN Reason: Protocol Stop: 11/28/17 23:59 Last Admin: 11/29/17 00:54 Dose: 1,000 mls Morphine Sulfate (Morphine) 6 mg IVP EDNOW ONE Stop: 11/28/17 23:59 Last Admin: 11/29/17 00:55 Dose: 6 mg Ondansetron HCl (Zofran) 4 mg IVP EDNOW ONE Stop: 11/28/17 23:59 Last Admin: 11/29/17 00:54 Dose: 4 mg Departure - Departure Disposition: Home, Routine, Self-Care Clinical Impression: Abdominal pain Qualifiers: Abdominal location: generalized Qualified Code(s): R10.84 - Generalized abdominal pain Condition: Good Instructions: Abdominal Pain (ED), Gas and Bloating (ED) Additional Instructions: Please drink plenty of fluids a minimum of 8-10 glasses per day. Take MiraLax, stool softeners, enemas, suppositories as needed to prevent constipation. If at any time you developed severe intractable abdominal pain, nausea/vomiting or spike a fever; return to the emergency room immediately for re-evaluation. Referrals: Denisa Brownlee MD [Primary Care Provider] - As per Instructions
[2017-11-29 00:54] LABS: PLATELET COUNT 316 10^3/uL (150-400)
[2017-11-29 01:34] VITALS: O2SAT 100
[2017-11-29 02:53] VITALS: BP 100/60; PULSE 99; RESP 16
[2017-11-29] MEDS ORDERED: OXYCODONE/APAP 5/325MG PREPACK#4 BTL TAKEHOME ONE (02:56)
== END 2017-11-29 03:09 | disposition home or self-care (01) ==
DX: R10.84 Generalized abdominal pain (principal); E86.9 Volume depletion, unspecified; Z90.710 Acquired absence of both cervix and uterus; Z90.89 Acquired absence of other organs
CPT/HCPCS: 96374; J2405

== ENCOUNTER 2017-12-12 14:43 | Observation (INO) | payer SELFPAY ==
--- NOTE | 2017-12-12 15:45 | EDPHY ---
H & P Time Seen by Provider: 12/12/17 15:25 HPI/ROS: CHIEF COMPLAINT: Abdominal pain HISTORY OF PRESENT ILLNESS: 42 year old female presents with left-sided abdominal pain. She has been evaluated several times over the last year for similar symptoms, initially in January 2017 when she was diagnosed with a small bowel obstruction. This was resolved without surgical intervention. She has followed up with gastroenterology and consulted with Dr. Denis, general surgeon, in the past. She was evaluated most recently 11/28/16, x-ray at that time showed findings suggesting early partial small bowel obstruction. Her discomfort relieved on its own within one week. Today, she developed similar discomfort around 7am. Pain is primarily to the left of her umbilicus and wraps around to her back. Constant pain around 7-8/10 with spikes to 10/10 in severity. She did have a normal bowel movement this morning. After her discomfort began, she administered an enema and has tried medical marijuana and anti-spasmodic medication at home with no relief. She prefers to be conservative with imaging studies due to frequent CTs and MRIs over the last year, and would like to start her evaluation with a repeat abdominal x-ray. She denies fever, vomiting, diarrhea, urinary complaints, or other associated symptoms. REVIEW OF SYSTEMS: A 10 point review of systems was performed and is negative with the exception of the elements mentioned in the history of present illness. Past Medical/Surgical History: Endometriosis Small bowel obstruction. IBS Appendectomy Hysterectomy Migraines Social History: Friend at bedside. . Lives in [place]. 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 Smoking Status: Never smoked Physical Exam: General Appearance: Alert, pleasant, does not appear in pain Eyes: Pupils equal and round, no conjunctival pallor or injection ENT, Mouth: Mucous membranes moist Neck: Normal inspection Respiratory: Lungs are clear to auscultation Cardiovascular: Regular rate and rhythm Gastrointestinal: Periumbilical and infraumbilical tenderness. Abdomen is soft. Normal bowel sounds. Neurological: A&O, nonfocal exam Skin: Warm and dry, no rash Extremities: Nontender, no pedal edema Psychiatric: Mood and affect normal Constitutional: Initial Vital Signs Temperature (C) 36.8 C 12/12/17 14:52 Heart Rate 90 12/12/17 14:52 Respiratory Rate 18 12/12/17 14:52 Blood Pressure 106/71 01/20/18 14:52 O2 Sat (%) 97 12/12/17 14:52 O2 Delivery Mode Room Air Allergies/Adverse Reactions: paroxetine HCl [From Paxil] Allergy (Mild, Verified 12/12/17 14:51) Rash Home Medications: Medication Instructions Recorded Herbals/Supplements -Info Only 1 ea PO DAILY 12/12/17 Medical Decision Making - Diagnostics Imaging Results: Abdomen X-Ray 12/12/17 16:00 Impression: 1. Query airways disease. 2. Mildly abnormal bowel gas pattern with no definite focal localizing features. Results called and discussed with MARIBEL WATKINS M.D. on 12/12/2017 at 17:04 Imaging: Discussed imaging studies w/ char filter tank tender head Radiologist, I viewed and interpreted images myself ED Course/Re-evaluation: 42 y/o female presents with abdominal pain and nausea worsening since 7am this morning, sx similar to prior small bowel obstruction. Exam reveals periumbilical and infraumbilical tenderness. Abdomen is soft, normal bowel sounds are present. The patient prefers abdominal x-ray to other imaging studies. She requests Dilaudid for pain, as this has worked well for her in the past. IV established. Plan to administer 0.5mg IV Dilaudid, 4mg IV Zofran, and 1L IV NS for symptom relief. Plan for laboratory studies including CBC, chemistries, liver, lipase. 17:00 Discussed x-ray results with Dr. España, radiologist. No definite bowel obstruction at this time. 17:05 Reassessed patient. Discussed x-ray results. Will admit for probable early SBO. Abd exam remains unchanged. 17:[address] Alaniz, hospitalist. She accepts admission to med/ surg. Differential Diagnosis: includes though not limited to diverticulitis, appy, pancreatitis, cholecystitis , bowel perforation - Data Points Laboratory Results: Laboratory Results 12/12/17 15:30 12/12/17 15:30 Medications Given: Diphenhydramine HCl (Benadryl) 25 mg PO Q6HRS PRN PRN Reason: Itching Stop: 06/11/18 00:38 Last Admin: 12/13/17 01:03 Dose: 25 mg Hydromorphone HCl (Dilaudid) 0.2 - 0.8 mg IVP Q4HRS PRN; Protocol PRN Reason: Pain, Severe Unable to Take PO Stop: 12/22/17 18:10 Last Admin: 12/13/17 08:06 Dose: 0.4 mg Potassium Chloride/Dextrose/Sod Cl (D5w 1/2 Ns W/ 20 Kcl/L) 1,000 mls @ 125 mls /hr IV CONT JESSICA Stop: 06/10/18 18:14 Last Admin: 12/13/17 03:49 Dose: 1,000 mls Discontinued Medications Hydromorphone HCl (Dilaudid) 0.5 mg IVP EDNOW ONE Stop: 12/12/17 16:01 Last Admin: 12/12/17 16:08 Dose: 0.5 mg Hydromorphone HCl (Dilaudid) 0.5 mg IVP EDNOW ONE Stop: 12/12/17 17:32 Last Admin: 12/12/17 17:46 Dose: 0.5 mg Hydromorphone HCl (Dilaudid) 0.2 - 0.4 mg IVP Q4HRS PRN PRN Reason: Pain, Severe Unable to Take PO Stop: 12/22/17 18:10 Last Admin: 12/12/17 19:28 Dose: 0.4 mg Sodium Chloride (Ns) 1,000 mls @ 0 mls/hr IV EDNOW ONE; Wide Open PRN Reason: Protocol Stop: 12/12/17 16:01 Last Admin: 12/12/17 16:08 Dose: 1,000 mls Ondansetron HCl (Zofran) 4 mg IVP EDNOW ONE Stop: 12/12/17 16:01 Last Admin: 12/12/17 16:08 Dose: 4 mg Departure - Departure Disposition: [facility] Inpatient Acute Clinical Impression: Abdominal pain Qualifiers: Abdominal location: left upper quadrant Qualified Code(s): R10.12 - Left upper quadrant pain Condition: Fair Report Scribed for: Maribel Watkins Report Scribed by: Kathy Valladares Date of Report: 12/12/17 Time of Report: 15:45 Physician Review and Approval Statement: 12/12/17 15:45 Portions of this note were transcribed by a medical art therapist. I personally performed a history, physical exam, medical decision making, and confirmed accuracy of information the transcribed note.
[2017-12-12] MEDS ORDERED: ONDANSETRON 4 MG/2 ML VIAL IVP ONE (16:00)
[2017-12-12] MEDS ORDERED: NS 1,000 ML IV ONE (16:00)
[2017-12-12] MEDS ORDERED: HYDROmorphONE/DILAUDID 1 MG/ML INJ IVP ONE ×2 (16:00→17:31)
[2017-12-12 16:09] LABS: PLATELET COUNT 296 10^3/uL (150-400)
[2017-12-12] MEDS ORDERED: HYDROmorphONE/DILAUDID 1 MG/ML INJ IVP PRN (18:11)
[2017-12-12] MEDS ORDERED: ONDANSETRON 4 MG/2 ML VIAL IVP PRN (18:11)
--- NOTE | 2017-12-12 18:19 | PDGENHP ---
History and Physical - Chief Complaint abdominal pain - History of Present Illness 42 yo female with abdominal pain. She states ever since her hysterectomy, she has had chronic abdominal and digestive problems. She also has a h/o endometriosis. She feels increased gas pressure in her epigastrium which radiates into her left chest. She feels her intestines are very sensitive. She was in the ED 2 weeks ago and discharged home, but has had persistent pain. She has been taking mostly a liquid diet until 3 days [employer], when she had some grapes and papaya and pears. She then developed increased abdominal pressure. +nausea, which is better now. No vomiting. No fevers. Last BM was this am, which was normal and formed. When she added in the whole fruits, her BM's become softer. In the ED, abdominal xray was c/w early SBO pattern and she is admitted to the hospital for further management. History Information - Allergies/Home Medication List Allergies/Adverse Reactions: paroxetine HCl [From Paxil] Allergy (Mild, Verified 12/12/17 14:51) Rash Home Medications: RX: Herbals/Supplements -Info Only 1 ea PO DAILY 12/12/17 [Last Taken Unknown] I have personally reviewed and updated: family history, medical history, social history, surgical history - Past Medical History Additional medical history: Endometriosis. Multiple sclerosis - diagnosed by Dr. Gina Agee neurologist in 2017, no meds. Headaches - Surgical History Reports: appendectomy Additional surgical history: appy 2001. laparoscopy x2- 10/2015 confirmed endometriosis. hysterectomy 06/2016, removed more endometriosis. IBS - last colonoscopy 2014, clear per pt report. Pill endoscopy also normal. 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 Review of Systems Review of Systems: ROS: 10pt was reviewed & negative except for what was stated in HPI & below Physical Exam Physical Exam: Temp Pulse Resp BP Pulse Ox 36.8 C 86 18 108/72 99 12/12/17 14:52 12/12/17 18:12 12/12/17 18:12 12/12/17 18:12 12/12/17 18:12 Constitutional: no apparent distress Eyes: PERRL Ears, Nose, Mouth, Throat: moist mucous membranes Cardiovascular: regular rate and rhythym Respiratory: no respiratory distress, clear to auscultation Gastrointestinal: other (soft, nd, nt, hypoactive bowel tones) Skin: warm Musculoskeletal: full muscle strength Neurologic: AAOx3 Psychiatric: interacting appropriately Lab Data & Imaging Review 12/12/17 15:30 12/12/17 15:30 WBC 11.06 10^3/uL (3.80-9.50) H 12/12/17 15:30 RBC 4.75 10^6/uL (4.18-5.33) 12/12/17 15:30 Hgb 14.8 g/dL (12.6-16.3) 12/12/17 15:30 Hct 42.1 % (38.0-47.0) 12/12/17 15:30 MCV 88.6 fL (81.5-99.8) 12/12/17 15:30 MCH 31.2 pg (27.9-34.1) 12/12/17 15:30 MCHC 35.2 g/dL (32.4-36.7) 12/12/17 15:30 RDW 12.7 % (11.5-15.2) 12/12/17 15:30 Plt Count 296 10^3/uL (150-400) 12/12/17 15:30 MPV 10.5 fL (8.7-11.7) 12/12/17 15:30 Neut % (Auto) 88.6 % (39.3-74.2) H 12/12/17 15:30 Lymph % (Auto) 6.5 % (15.0-45.0) L 12/12/17 15:30 [place] % (Auto) 3.9 % (4.5-13.0) L 12/12/17 15:30 Eos % (Auto) 0.0 % (0.6-7.6) L 12/12/17 15:30 Baso % (Auto) 0.5 % (0.3-1.7) 12/12/17 15:30 Nucleat RBC Rel Count 0.0 % (0.0-0.2) 12/12/17 15:30 Absolute Neuts (auto) 9.81 10^3/uL (1.70-6.50) H 12/12/17 15:30 Absolute Lymphs (auto) 0.72 10^3/uL (1.00-3.00) L 12/12/17 15:30 Absolute Monos (auto) 0.43 10^3/uL (0.30-0.80) 12/12/17 15:30 Absolute Eos (auto) 0.00 10^3/uL (0.03-0.40) L 12/12/17 15:30 Absolute Basos (auto) 0.05 10^3/uL (0.02-0.10) 12/12/17 15:30 Absolute Nucleated RBC 0.00 10^3/uL (0-0.01) 12/12/17 15:30 Immature Gran % 0.5 % (0.0-1.1) 12/12/17 15:30 Immature Gran # 0.05 10^3/uL (0.00-0.10) 12/12/17 15:30 Sodium 141 mEq/L (135-145) 12/12/17 15:30 Potassium 3.9 mEq/L (3.5-5.2) 12/12/17 15:30 Chloride 99 mEq/L (97-110) 12/12/17 15:30 Carbon Dioxide 28 mEq/l (22-31) 12/12/17 15:30 Anion Gap 14 mEq/L (8-16) 12/12/17 15:30 BUN 7 mg/dL (7-23) 12/12/17 15:30 Creatinine 0.6 mg/dL (0.6-1.0) 12/12/17 15:30 Estimated GFR > 60 12/12/17 15:30 Glucose 118 mg/dL (70-100) H 12/12/17 15:30 Calcium 10.0 mg/dL (8.5-10.4) 12/12/17 15:30 Total Bilirubin 0.6 mg/dL (0.1-1.4) 12/12/17 15:30 Conjugated Bilirubin 0.3 mg/dL (0.0-0.5) 12/12/17 15:30 Unconjugated Bilirubin 0.3 mg/dL (0.0-1.1) 12/12/17 15:30 AST 50 IU/L (14-46) H 12/12/17 15:30 ALT 44 IU/L (9-52) 12/12/17 15:30 Alkaline Phosphatase 96 IU/L (38-126) 12/12/17 15:30 Total Protein 6.7 g/dL (6.3-8.2) 12/12/17 15:30 Albumin 4.0 g/dL (3.5-5.0) 12/12/17 15:30 Lipase 20 IU/L (23-300) L 12/12/17 15:30 Assessment & Plan Assessment: Abdominal pain with early SBO pattern - She has had extensive GI workup (neg C- scope, EGD, and pill endoscopy) and tried multiple medications including TCA's and Bentyl with no improvement. No vomiting or distension, no indication for NG tube at this time. Admit for bowel rest, IVF's, pain control. Repeat KUB in am. Discussed outpt f/u with Dr. Denis to consider repeat laparoscopy as she has h/o endometriosis and this may be involving her bowel. Multiple sclerosis - recently diagnosed by Neurology, no medications. No e/o flare. Full code DVT PPLX - Low risk, SCD's Dispo - obs
[2017-12-12] MEDS: D5W 1/2 NS W/ 20 KCl/L 1,000 ML IV SCH (20:25)
[2017-12-12] MEDS: HYDROmorphONE/DILAUDID 1 MG/ML INJ IVP PRN (22:34)
[2017-12-13] MEDS: HYDROmorphONE/DILAUDID 1 MG/ML INJ IVP PRN ×3 (00:29→08:06)
[2017-12-13] MEDS ORDERED: diphenhydrAMINE 25 MG CAP PO PRN (00:39)
[2017-12-13] MEDS: D5W 1/2 NS W/ 20 KCl/L 1,000 ML IV SCH ×2 (03:49→12:12)
[2017-12-13 03:51] VITALS: PULSE 80
[2017-12-13 05:08] LABS: PLATELET COUNT 199 10^3/uL (150-400)
[2017-12-13 09:29] VITALS: BP 102/62; RESP 14; TEMP 98.4; O2SAT 97
--- NOTE | 2017-12-13 11:56 | ASMTCMCOM ---
CM Note CM Note Notes: Patient chart reviewed for discharge poc needs. 42 year old female lives Independent with his . She was admitted via the ED with C/o abdominal pain. She is ambulatory, No therapy evals. Likely to dc without needs, CM available should needs arise. Date Signed: 12/13/2017 11:56 AM Electronically Signed By:Janelle Winston RN
[2017-12-13] MEDS ORDERED: ACETAMINOPHEN 120 MG SUPP PR ONE (12:05)
--- NOTE | 2017-12-13 14:17 | HOSPPROG ---
Hospitalist Progress Note Assessment/Plan: 42y female with abd pain. First encounter, chart reviewed. # Abdominal pain with early SBO pattern - ABD xray unchaged She has had extensive GI workup (neg C-scope, EGD, and pill endoscopy) tried multiple medications including TCA's and Bentyl with no improvement. No vomiting or distension offered NGT, pt refusing Admit for bowel rest, IVF's, pain control. Repeat KUB in am. Discussed outpt f/u with Dr. Denis to consider repeat laparoscopy as she has h/ o endometriosis and this may be involving her bowel. # Multiple sclerosis - recently diagnosed by Neurology, no medications. No e/o flare. Full code DVT PPLX - Low risk, SCD's Dispo - change to inpatient unable to stay hydrated on own repeat xray in am Objective: Vital Signs Temp Pulse Resp BP Pulse Ox 36.9 C 80 14 102/62 97 12/13/17 08:00 12/13/17 08:00 12/13/17 08:00 12/13/17 08:00 12/13/17 08:00 Laboratory Results 12/13/17 04:51 12/13/17 04:51 12/12/17 12/13/17 12/14/17 05:59 05:59 05:59 Intake Total 1000 Balance 1000 ICD10 Worksheet Patient Problems: Problems Problem Status Onset Dysmenorrhea Acute Endometriosis determined by laparoscopy Acute Subserosal leiomyoma of uterus Acute Abdominal pain Acute
--- NOTE | 2017-12-13 14:29 | ASMTCMCOM ---
CM Note CM Note Notes: Patient medically cleared for discharge home. No needs identified. CM available should needs arise. Date Signed: 12/13/2017 02:29 PM Electronically Signed By:Janelle Winston RN
--- NOTE | 2017-12-13 14:39 | GDS ---
[f rep st] DISCHARGE SUMMARY DISCHARGE DIAGNOSES: 1. Abdominal pain. 2. History of multiple sclerosis. 3. History of endometriosis. STUDIES AND PROCEDURES DONE: Abdominal x-ray. PHYSICAL EXAM: GENERAL: The patient is alert. VITAL SIGNS: Afebrile at 36.9, pulse is 80, respira tory rate is 14, blood pressure is 102/62. She is saturating 97% on room air. I have seen and evaluated the patient on the day of discharge. HOSPITAL COURSE: The patient is a 42-year-old female who presented to the emergency room with compla ints of abdominal pain. She has had recurring small bowel obstructions in the past. She was noted t o have an early small bowel obstruction pattern on her abdominal x-ray, but not definitive small georgie l obstruction. During this hospitalization, she received IV hydration as well as pain management. S he is feeling significantly better. She is now passing gas and is eager to be discharged home. I giron ve discussed followup options with the patient including discussion with Dr. Denis as well as Gastroe nterology for further recommendations of potential treatment course. The patient is in agreement wit h this plan. She will be discharged home with her to follow up in the outpatient setting. S he has been instructed to return to the emergency room if she has any increasing abdominal pain, naus ea, vomiting, or significant diarrhea. She understands these limitations and is agreement with this. /[id number]/MODL
--- NOTE | 2017-12-14 09:08 | ASDISCHSUM ---
Discharge Information Plan Status:Home with No Needs Medically Cleared to Leave:12/12/2017 Discharge Date:12/13/2017 03:18 PM CM D/C Disposition: ADT D/C Disposition:Home, Routine, Self-Care Projected Discharge Date:12/13/2017 12:00 AM Transportation at D/C: Discharge Delay Reason: Follow-Up Date:12/13/2017 12:00 AM Discharge Slot: Final Diagnosis: Placement Information Patient Contact Information Contact Name:VARSHA Relationship: Address:[address] Work Phone: [facility] Alternate Phone: [facility]/Zip Code:[place] [address] Email: Financial Information Financial Class:Self-Pay Primary Plan Desc:SELF PAY Primary Plan Number: Secondary Plan Desc: Secondary Plan Number: Assessment Information LACE LACE Acuity / Level of Answers: Yes Care: Did the patient have an inpatient admission? # of Emergency department Answers: 1-2 visits in the last 6 months Score: 4 Date Signed: 12/12/2017 05:35 PM Electronically Signed By:Laura Brumfield RN [facility] CM Progress Note CM Note CM Note Notes: Patient chart reviewed for discharge poc needs. 42 year old female lives Independent with his . She was admitted via the ED with C/o abdominal pain. She is ambulatory, No therapy evals. Likely to dc without needs, CM available should needs arise. Date Signed: 12/13/2017 11:56 AM Electronically Signed By:Janelle Winston RN [facility] CM Progress Note CM Note CM Note Notes: Patient medically cleared for discharge home. No needs identified. CM available should needs arise. Date Signed: 12/13/2017 02:29 PM Electronically Signed By:Janelle Winston RN Intervention Information
== END 2017-12-13 15:18 | disposition home or self-care (01) ==
LOC: F3E 19:19
PROVIDERS: ADMIT Hospitalist; ATTEND Hospitalist
DX: R10.33 Periumbilical pain (principal); Z87.19 Personal history of other diseases of the digestive system; Z90.710 Acquired absence of both cervix and uterus
CPT/HCPCS: 96374; G0378; J1170; J2405